=== PATIENT | male | born 1945 | race Caucasian/White ===

== ENCOUNTER 2017-03-10 10:50 | Emergency (ER) | payer OTHER, MEDICARE ==
[2017-03-10 11:12] VITALS: BP 123/85; PULSE 71; TEMP 98.3; BMI 34.2
[2017-03-10] MEDS ORDERED: IBUPROFEN 600 MG TABLET (FP) PO ONE ×2 (11:27→11:29)
--- NOTE | 2017-03-10 11:31 | PDOC ---
History of Present Illness - General Chief Complaint: Injury Stated Complaint: LEFT RIB PAIN Time Seen by Provider: 03/10/17 10:56 History Source: Patient Exam Limitations: No Limitations - History of Present Illness Initial Comments: 03/10/17 11:28 This patient is a 71-year-old male with a history of A. fib status post ablation 2, hypertension who presents emergency Department with left chest wall pain. Patient state he was in his usual state of health possibly 3 days ago. While gardening he tripped over some caridad fell on his deck and landed on his left chest onto a flower pot. He adamantly denies head trauma, loss of consciousness, amnesia, headache, change in vision, dizziness, focal weakness or numbness. Since this fall he's had left chest wall pain which worsens with movement. He has not taken any pain medications for his symptoms. He denies shortness of breath, palpitations. He denies any bruising. Chest: A. fib, hypertension PSH: Ablation, Meds: Aspirin, carvedilol, ramipril ALL: NKDA Social: Denies Alcohol, drug, cigarette use GENERAL/CONSTITUTIONAL: No: fever, chills, weakness, loss of appetite. HEAD, EYES, EARS, NOSE AND THROAT: No: change in vision, ear pain, discharge, sore throat, throat swelling. CARDIOVASCULAR: No: chest pain, lightheadedness, palpitations, syncope RESPIRATORY: No: cough, shortness of breath, wheezing, hemoptysis, stridor. GASTROINTESTINAL: No: nausea, vomiting, diarrhea, abdominal cramping, rectal bleeding, constipation. GENITOURINARY: No: dysuria, hematuria, frequency, urgency, flank pain. MUSCULOSKELETAL: Yes: chest wall pain No: back pain, neck pain, joint pain, muscle swelling or pain SKIN AND BREASTS: No: lesions, pallor, rash or easy bruising. NEUROLOGIC: No: headache, vertigo, paresthesias, weakness ENDOCRINE: No: unexplained weight gain or loss HEMATOLOGIC/LYMPHATIC: No: anemia, easy bleeding, swelling nodes. GENERAL: The patient is in no acute distress. HEAD: Normal with no signs of trauma. EYES: PERRLA, EOMI, sclera anicteric, conjunctiva clear. ENT: Ears normal, nares patent, oropharynx clear without exudates. Moist mucous membranes. NECK: Normal range of motion, supple without lymphadenopathy, JVD, or masses. LUNGS: Breath sounds equal, clear to auscultation bilaterally. No wheezes, and no crackles. HEART:Regular rate and rhythm, normal S1 and S2 without murmur, rub or gallop. ABDOMEN: Soft, nontender, normoactive bowel sounds. No guarding, no rebound. No masses palpable. EXTREMITIES: Normal range of motion, no edema. No clubbing or cyanosis. No erythema, or tenderness. NEUROLOGICAL: Cranial nerves II through XII grossly intact. Normal speech. No focal neurological deficits. MUSCULOSKELETAL: Back non-tender to palpation, no CVA tenderness SKIN: No bruising Warm, Dry, normal turgor, no rashes or lesions noted. Past History - Past Medical History Allergies/Adverse Reactions: Allergies Allergy/AdvReac Type Severity Reaction Status Date / Time No Known Allergies Allergy Verified 03/10/17 11:02 Home Medications: Ambulatory Orders Carvedilol [Coreg -] 6.25 mg PO BID 08/10/13 Ramipril 5 mg PO DAILY 08/10/13 Aspirin [Aspirin EC] 81 mg PO DAILY 03/10/17 Lidocaine 5% Patch [Lidoderm Patch -] 1 patch TP DAILY PRN #30 patch 03/10/17 Methocarbamol [Robaxin -] 500 mg PO TID PRN #21 tablet 03/10/17 Tramadol HCl 50 mg PO TID PRN #15 tablet MDD 3 03/10/17 Cardiac Disorders: Yes (A FIB) HTN: Yes - Psycho/Social/Smoking Cessation Hx Anxiety: No Suicidal Ideation: No Smoking Status: No Smoking History: Never smoked Number of Cigarettes Smoked Daily: 0 Hx Alcohol Use: Yes (WINE DAILY) Drug/Substance Use Hx: No Substance Use Type: None *Physical Exam - Vital Signs Last Vital Signs Temp Pulse Resp BP Pulse Ox 98.3 F 71 16 123/85 97 03/10/17 10:56 03/10/17 10:56 03/10/17 10:56 03/10/17 10:56 03/10/17 10:56 Medical Decision Making - Medical Decision Making 03/10/17 11:31 With fracture versus rib contusion. Will discharge to home once x-rays are done. Will give Motrin for pain. Will reassess 03/10/17 13:00 CXR does not demonstrate pneumothorax or hemothorax Ribs: no fracture seen Will give pain medications X rays not read officially Radiology called PT states he did not hit his head He did not black out He does not want a head CT *DC/Admit/Observation/Transfer Diagnosis at time of Disposition: Contusion of rib on left side Qualifiers: Encounter type: initial encounter Qualified Code(s): S20.212A - Contusion of left front wall of thorax, initial encounter - Discharge Dispostion Disposition: HOME Condition at time of disposition: Stable Admit: No - Prescriptions Prescriptions: Lidocaine 5% Patch [Lidoderm Patch -] 1 patch TP DAILY PRN #30 patch PRN Reason: Pain Methocarbamol [Robaxin -] 500 mg PO TID PRN #21 tablet PRN Reason: Pain Tramadol HCl 50 mg PO TID PRN #15 tablet MDD 3 PRN Reason: Severe Pain - Referrals Referrals: Briseyad Wu MD [Primary Care Provider] - - Patient Instructions Printed Discharge Instructions: DI for Rib Contusion, DI for Rib Fracture Additional Instructions: Thank you for coming in to the ER today Please take pain medications as prescribed Please use the incentive spirometer to encourage deep breathing Please monitor yourself for fevers, cough, sputum production Please follow up with your primary doctor in 1 week Return to the ER for ANY other concerns or complaints
== END 2017-03-10 13:19 | disposition home or self-care (01) ==
LOC: FER 10:50
DX: S20.212A Contusion of left front wall of thorax, initial encounter (principal); W18.39XA Other fall on same level, initial encounter; Y93.89 Activity, other specified; Y92.007 Garden or yard of unspecified non-institutional (private) residence as the place of occurrence of the external cause; I48.91 Unspecified atrial fibrillation; I10 Essential (primary) hypertension; Z79.82 Long term (current) use of aspirin
CPT/HCPCS: 71020-TC; 71101-TC; 99282-25

== ENCOUNTER 2018-10-19 09:53 | Emergency (ER) | payer OTHER, MEDICARE ==
[2018-10-19 09:58] VITALS: BMI 33.9
[2018-10-19 10:00] VITALS: BP 127/87; PULSE 68; TEMP 97.9
--- NOTE | 2018-10-19 10:00 | PDOC ---
History of Present Illness - General Chief Complaint: Cold Symptoms Stated Complaint: congestion Time Seen by Provider: 10/19/18 10:00 History Source: Patient - History of Present Illness Initial Comments: 10/19/18 10:16 The patient is 73 year old male with a PMH of Atrial Fibrillation (s/p ablation) , HTN who presents to the ED c/o 3 day h/o bilateral hearing loss. States he noticed he was having trouble hearing while watching television last Friday. As his symptoms did not improve over the weekend he decided to come to the ED this morning. H/o sharp ear pain w/cough and some rhinorrhea. Denies tinnitus , fevers/chills, vertiginous symptoms, neck pain, sick contacts, recent travel. Further denies numbness, tingling. Adherent to medications including Carvedilol, Rampril, ASA. Last took medications this morning. The patient denies chest pain, shortness of breath, abdominal pain, nausea/ vomiting, diarrhea/constipation, dysuria/hematuria. NKDA Surgical: Atrial Ablation Social: denies toxic habits As per EMR, patient last evaluated in our ED in 2017 s/p mechanical fall, c/o L rib pain. CXR was negative and patient was discharged home with supportive care. Past History - Past Medical History Allergies/Adverse Reactions: Allergies Allergy/AdvReac Type Severity Reaction Status Date / Time No Known Allergies Allergy Verified 10/19/18 09:54 Home Medications: Ambulatory Orders Carvedilol [Coreg -] 6.25 mg PO BID 08/10/13 Ramipril 5 mg PO DAILY 08/10/13 Aspirin [Aspirin EC] 81 mg PO DAILY 03/10/17 Amoxicillin/Potassium Clav [Augmentin 875-125 Tablet] 1 each PO BID 7 Days #14 tablet 10/19/18 Cardiac Disorders: Yes (A FIB) COPD: No HTN: Yes - Suicide/Smoking/Psychosocial Hx Smoking Status: No Smoking History: Never smoked Number of Cigarettes Smoked Daily: 0 Hx Alcohol Use: Yes (WINE DAILY) Drug/Substance Use Hx: Yes (daily) Substance Use Type: None Review of Systems - Review of Systems Constitutional: No: Chills, Fever HEENTM: Yes: Nose Congestion, Hearing Loss. No: Recent change in vision, Ear Discharge Respiratory: Yes: Cough. No: Shortness of Breath, Wheezing, Productive cough Cardiac (ROS): No: Chest Pain, Lightheadedness, Palpitations, Syncope ABD/GI: No: Constipated, Diarrhea, Nausea, Vomiting : No: Burning, Dysuria *Physical Exam - Vital Signs Last Vital Signs Temp Pulse Resp BP Pulse Ox 0/0 L 10/19/18 09:54 - Physical Exam General Appearance: Yes: Nourished, Obese HEENT: positive: EOMI, MARCEL, Normal Voice, Hearing Decreased (B/L ), TM Erythema. negative: Pharyngeal Erythema, Tonsillar Exudate, Sinus Tenderness, TM Bulging, TM Dull Neck: positive: Trachea midline, Normal Thyroid, Supple Respiratory/Chest: positive: Lungs Clear, Normal Breath Sounds Cardiovascular: positive: S1, S2. negative: JVD Vascular Pulses: Dorsalis-Pedis (R): 2+, Doralis-Pedis (L): 2+ Gastrointestinal/Abdominal: positive: Normal Bowel Sounds, Soft Extremity: positive: Normal Capillary Refill, Normal Inspection Moderate Sedation - Procedure Monitoring Vital Signs: Procedure Monitoring Vital Signs Temperature Pulse Rate Respiratory Rate Blood Pressure 0/0 L 10/19/18 09:54 O2 Sat by Pulse Oximetry (%) Medical Decision Making - Medical Decision Making 10/19/18 10:21 73 year old male with B/L hearing loss. H/o sharp pain in his ear with cough/ mild congestion. VS unremarkable. PE shows intact TM with erythema (R >L). Frontal diagnosis: infectious including cochleitis, otitis media, less likely: Menienre Disease (no vertigo, no tinnitus), thyroid disease (no tinnitus), choleastoma (B/L) or meningitis (neck supple, febrile), presbyscusis (acute onset) or malignancy. Low clinical suspicion for cerebral ischemia as no focal neurologic deficit on exam. 10/19/18 11:02 Will treat for presumptive AOM but also consider viral etiologies including cochleitis. Patient discharged home with Augmentin prescription, ENT follow-up, return precautions and supportive care. I discussed the physical exam findings, ancillary test results and final diagnoses with the patient. I answered all of the patient's questions. The patient was satisfied with the care received and felt comfortable with the discharge plan and treatment plan. The patient will return to the Emergency Department with any new, persistent or worsening symptoms. *DC/Admit/Observation/Transfer Diagnosis at time of Disposition: Hearing loss - Discharge Dispostion Disposition: HOME Condition at time of disposition: Good Decision to Admit order: No - Prescriptions Prescriptions: Amoxicillin/Potassium Clav [Augmentin 875-125 Tablet] 1 each PO BID 7 Days #14 tablet - Referrals Referrals: Erich Chanel MD [Primary Care Provider] - Anthony Reynolds MD [Staff Physician] - - Patient Instructions Printed Discharge Instructions: DI for Hearing Loss Additional Instructions: You were evaluated today for your difficulty hearing. We are treating you for a possible infection with an antibiotic. Please take the entire prescribed antibiotic course. Please make a follow-up appointment with an ear doctor for further evaluation. We have provided you with a referral or you can call your insurance company for a list of doctors. Your care is not complete until you are evaluated by an ear doctor. Return to the Emergency Department for any new/worsening/concerning symptoms. - Post Discharge Activity
--- NOTE | 2018-10-19 10:43 | PDOC ---
Attending Attestation - Resident Resident Name: Debby Mccall - ED Attending Attestation I have performed the following: I have examined & evaluated the patient, The case was reviewed & discussed with the resident, I agree w/resident's findings & plan, Exceptions are as noted - HPI HPI: 73 yo M history afib s/p ablation, HTN presenting with 2 day history of hearing loss bilaterally. He states he has had ear pain and discomfort accompanying the hearing loss. Denies sore throat. +Rhinorrhea. - Physicial Exam PE: GENERAL: Awake, alert, and fully oriented, in no acute distress HEAD: No signs of trauma EYES: PERRLA, EOMI, sclera anicteric, conjunctiva clear ENT: Auricles normal inspection. Hearing decreased B/L. +Erythema to B/L TMS, no drainage. Nares patent, oropharynx clear without exudates. Moist mucosa NECK: Normal ROM, supple, no lymphadenopathy, JVD, or masses LUNGS: Breath sounds equal, clear to auscultation bilaterally. No wheezes, and no crackles HEART: Regular rate and rhythm, normal S1 and S2, no murmurs, rubs or gallops ABDOMEN: Soft, nontender, normoactive bowel sounds. No guarding, no rebound. No masses EXTREMITIES: Normal range of motion, no edema. No clubbing or cyanosis. No cords, erythema, or tenderness NEUROLOGICAL: Cranial nerves II through XII grossly intact. Normal speech, normal gait. Motor and sensation intact SKIN: Warm, Dry, normal turgor, no rashes or lesions noted. - Medical Decision Making Will treat for AOM. ENT f/u.
== END 2018-10-19 11:17 | disposition home or self-care (01) ==
LOC: FER 09:53
DX: H91.90 Unspecified hearing loss, unspecified ear (principal); I48.91 Unspecified atrial fibrillation; I10 Essential (primary) hypertension
CPT/HCPCS: 99281-25

== ENCOUNTER 2023-10-14 06:40 | Emergency (ER) | payer OTHER, MEDICARE ==
[2023-10-14 06:49] VITALS: BP 121/71; PULSE 93; RESP 18; TEMP 97.7; BMI 29.8
[2023-10-14] MEDS ORDERED: ACETAMINOPHEN 325 MG TABLET (FP) PO ONE (07:18)
[2023-10-14] MEDS ORDERED: ACETAMINOPHEN 325 MG TABLET (FP) ONE (07:55)
[2023-10-14 08:22] LABS: EPITHELIAL CELLS 0-5 /hpf
== END 2023-10-14 09:27 | disposition home or self-care (01) ==
LOC: FER 06:40
DX: R05.9 Cough, unspecified (principal); R50.9 Fever, unspecified; N30.01 Acute cystitis with hematuria; J06.9 Acute upper respiratory infection, unspecified; U07.1 COVID-19
CPT/HCPCS: 0241U-QW; 81003; 81015; 87086; 87186; 99283-25